=== PATIENT | male | born 1980 | race Caucasian/White ===

== ENCOUNTER → 2017-06-28 14:50 | Outpatient (CLI) | payer OTHER, MEDICARE, MEDICAID, SELFPAY ==
--- NOTE | 2017-06-28 | DI.RAD.S_ITS ---
PROCEDURE: XR CHEST 1V INDICATIONS: PORT DYSFUCTION/CHECK POSITION OF DEVICE TECHNIQUE: One view of the chest was acquired. COMPARISON: [facility], , CHEST 1 VIEW, 04/13/2017, 9:02. [facility], CR, CHEST 2 VIEW, 01/21/2017, 10:46. FINDINGS: Surgical changes and devices: A Port-A-Cath from a left-sided approach extends into the distal SVC. Prior anterior cervical fusion plate noted at the low cervical spine Lungs and pleura: No pleural effusions or pneumothorax. Lungs are clear. Mediastinum: Mediastinal contours appear normal. Heart size is normal. Bones and chest wall: No suspicious bony lesions. Overlying soft tissues appear unremarkable. IMPRESSION: Normal Port-A-Cath appearance likely in film. Dictated by: Evens Ramírez M.D. on 06/28/2017 at 15:08 Approved by: Evens Ramírez M.D. on 06/28/2017 at 15:13
== END ==
PROVIDERS: Family Provider Family Medicine; PCP Family Medicine; Visit Provider Surgery
DX: Z45.2 Encounter for adjustment and management of vascular access device (principal)
CPT/HCPCS: 71045; 99212

== ENCOUNTER → 2017-07-02 16:43 | Outpatient (CLI) | payer OTHER, MEDICARE, MEDICAID, SELFPAY ==
--- NOTE | 2017-07-08 10:58 | PM.PFT.1 ---
Pulmonary Function Test Referral & Results Date Patient Seen: 07/02/17 Requesting provider: Karen Henry Indication: Amyotrophic lateral sclerosis Results: The spirometry demonstrates an FVC of 4.09 L which is 67% of predicted. The FEV1 was measured at 3.89 L which is 80% of predicted. The FEV1/FVC ratio was 95 which is 117% of predicted. Following the administration of bronchodilator there was no appreciable change. Lung volumes show an SVC of 4.34 L which is 75% of predicted. No diffusing capacity was performed The maximum voluntary ventilation was reduced. Interpretation: This study demonstrates mild obstructive lung disease without evidence of benefit following bronchodilator There is more significant restrictive lung disease present. This is entirely consistent with known neuromuscular disease.
== END ==
PROVIDERS: Family Provider Family Medicine; PCP Family Medicine; Visit Provider Internal Medicine Critical Care Medicine
DX: G12.21 Amyotrophic lateral sclerosis (principal)
CPT/HCPCS: 94010; 94060

== ENCOUNTER → 2017-07-22 13:28 | Outpatient (CLI) | payer OTHER, SELFPAY ==
[2017-07-22 14:09] LABS: Fractionated Inspired Oxygen 0.21; HCO3 ABG 27 mmol/L (23-27); Oxygen Saturation ABG 97 % (95-100); PCO2 ABG 39.9 mmHg (35-45); PO2 ABG 89 mmHg (80-105); TCO2 ABG 28 mmol/L (23-27)
[2017-07-22 14:44] LABS: pH ABG 7.43 (7.35-7.45)
== END ==
PROVIDERS: Family Provider Family Medicine; PCP Family Medicine; Visit Provider Internal Medicine Critical Care Medicine
DX: G70.9 Myoneural disorder, unspecified (principal); J99 Respiratory disorders in diseases classified elsewhere
CPT/HCPCS: 36600; 82805

== ENCOUNTER → 2017-08-02 15:57 | Outpatient (CLI) | payer OTHER, SELFPAY ==
[2017-08-02 18:02] LABS: Folate 19.4 ng/mL (2.76-20.0); Vitamin B12 982 pg/mL (239-931)
[2017-08-05 15:26] LABS: Homocysteine 5.1 umol/L (< 11.4)
[2017-08-06 22:12] LABS: Methylmalonic Acid 115 nmol/L (87-318)
== END ==
PROVIDERS: Family Provider Family Medicine; PCP Family Medicine; Visit Provider Family Medicine
DX: D75.89 Other specified diseases of blood and blood-forming organs (principal)
CPT/HCPCS: 36415; 82607; 82746; 83090; 83921

== ENCOUNTER 2017-08-04 17:28 | Emergency (ER) | payer OTHER, MEDICARE, MEDICAID, SELFPAY ==
[2017-08-04 17:32] VITALS: BP 142/100; PULSE 78; RESP 16; TEMP 36.2; O2SAT 100
--- NOTE | 2017-08-04 18:40 | ED.HA ---
HPI - Headache <Clay Tidwell DO - Last Filed: 08/05/17 07:01> General Chief Complaint: Headache Stated Complaint: HEADACHE Time Seen by Provider: 08/04/17 17:59 Source: patient Mode of arrival: wheelchair Limitations: no limitations History of Present Illness HPI Narrative: 37-year-old male with a history of ALS and also history of headaches not on daily medication in a wheelchair here for evaluation of headache. States that it started earlier today. Gradual onset. States that in character feels like prior headaches however just worse than normal. States that he took a Percocet at home prior to arrival without any improvement. Does have photophobia. No fevers. No neck pain. No change in his neurologic status. Related Data Home Medications Medication Instructions Recorded Confirmed riluzole 50 mg PO Q12H #0 11/17/16 06/15/17 [radicva] #0 03/17/17 06/15/17 baclofen 20 mg PO TID #0 03/18/17 06/15/17 vitamin B complex [B 1 tab PO QDAY #0 04/05/17 06/15/17 Complex-Vitamin B12] Previous Rx's Medication Instructions Recorded fluticasone 1 spray INTRANASAL BID #1 spr 07/23/16 oxycodone 5 mg PO Q6HP PRN #10 tab 04/13/17 lamotrigine ER 250 mg 250 mg PO QDAY #30 tab 07/15/17 tablet,extended release 24 hr lisdexamfetamine 20 mg capsule 20 mg PO QAM #30 cap 07/15/17 lisdexamfetamine 40 mg capsule 40 mg PO QAM #30 cap 07/15/17 prazosin 1 mg capsule 1 mg PO DAILY #90 cap 07/15/17 ramelteon 8 mg tablet 8 mg PO HS #90 tab 07/15/17 ramipril 5 mg capsule 5 mg PO DAILY #90 cap 07/15/17 methylphenidate ER 36 mg 36 mg PO QAM #30 tab 07/29/17 tablet,extended release 24 hr oxycodone-acetaminophen 5 mg-325 1 tab PO BIDP PRN #60 tab 07/30/17 mg tablet Allergies Allergy/AdvReac Type Severity Reaction Status Date / Time No Known Drug Allergies Allergy Verified 07/15/17 17:22 Review of Systems <DO Melvin Luque Last Filed: 08/05/17 07:01> Constitutional Denies chills, Denies fever(s), Reports headache(s), Denies lethargy and Denies weakness Eyes Denies diplopia and Reports photophobia ENT Ears, Nose, Mouth, and Throat: Reports headache(s), Denies sinus pain, Denies sinus pressure and Denies sore throat Cardiovascular Denies chest pain and Denies dyspnea Respiratory Denies cough and Denies dyspnea Gastrointestinal Gastrointestinal: Denies constipation, Denies diarrhea, Denies nausea and Denies vomiting Genitourinary Denies dysuria Neurologic Reports headache(s) and Denies weakness Comments: No change in neurologic status other than headache Hematologic/Lymphatic Denies easy bruising Exam <Clay Tidwell DO - Last Filed: 08/05/17 07:01> Initial Vital Signs Initial Vital Signs: Vital Signs Temperature 97.1 F L 08/04/17 17:32 Pulse Rate 78 08/04/17 17:32 Respiratory Rate 16 08/04/17 17:32 Blood Pressure 142/100 H 08/04/17 17:32 Pulse Oximetry 100 08/04/17 17:32 Const General: cooperative and well developed [facility] Head: normal to inspection, normocephalic and atraumatic Eyes Pupils: PERRL Resp Effort & Inspection: normal respiratory effort and no retractions Auscultation: clear to auscultation bilaterally Cardio Rate: regular rate Rhythm: regular rhythm Neuro General: alert, awake and oriented x3 Cognition: normal cognition Speech: speech normal Other: Patient able to move all 4 extremities or somewhat limited secondary to his ALS <Caitie Izaguirre DO - Last Filed: 08/04/17 23:30> Initial Vital Signs Initial Vital Signs: Vital Signs Temperature 97.1 F L 08/04/17 17:32 Pulse Rate 78 08/04/17 17:32 Respiratory Rate 16 08/04/17 17:32 Blood Pressure 142/100 H 08/04/17 17:32 Pulse Oximetry 100 08/04/17 17:32 Course <Clay Tidwell DO - Last Filed: 08/05/17 07:01> Orders Ordered: Discontinued Medications Diphenhydramine HCl (Benadryl) 25 mg IV NOW ONE Stop: 08/04/17 18:42 Last Admin: 08/04/17 19:11 Dose: 25 mg Haloperidol (Haldol) 2.5 mg IV NOW ONE Stop: 08/04/17 19:34 Last Admin: 08/04/17 19:40 Dose: 2.5 mg Hydromorphone HCl (Dilaudid) 1 mg IV NOW ONE Stop: 08/04/17 20:41 Last Admin: 08/04/17 20:51 Dose: Hydromorphone HCl (Dilaudid) 1 mg IV NOW ONE Stop: 08/04/17 21:01 Last Admin: 08/04/17 20:55 Dose: 0.5 mg Sodium Chloride (Normal Saline 0.9%) 1,000 mls @ 1,000 mls/hr IV BOLUS ONE Stop: 08/04/17 20:11 Last Infusion: 08/04/17 20:04 Dose: 0 mls/hr Admin: 08/04/17 19:13 Dose: 1,000 mls/hr Ketorolac Tromethamine (Toradol) 30 mg IV NOW ONE Stop: 08/04/17 18:42 Last Admin: 08/04/17 19:11 Dose: 30 mg Metoclopramide HCl (Reglan) 10 mg IV NOW ONE Stop: 08/04/17 18:42 Last Admin: 08/04/17 19:11 Dose: 10 mg Vital Signs - 8 hr 08/04/17 17:32 08/04/17 20:05 Temperature 97.1 F L Pulse Rate 78 67 Respiratory Rate 16 14 Blood Pressure 142/100 H Blood Pressure [Right Arm] 134/91 H Pulse Oximetry 100 97 <Caitie Izaguirre DO - Last Filed: 08/04/17 23:30> Orders Ordered: Discontinued Medications Diphenhydramine HCl (Benadryl) 25 mg IV NOW ONE Stop: 08/04/17 18:42 Last Admin: 08/04/17 19:11 Dose: 25 mg Haloperidol (Haldol) 2.5 mg IV NOW ONE Stop: 08/04/17 19:34 Last Admin: 08/04/17 19:40 Dose: 2.5 mg Hydromorphone HCl (Dilaudid) 1 mg IV NOW ONE Stop: 08/04/17 20:41 Last Admin: 08/04/17 20:51 Dose: Hydromorphone HCl (Dilaudid) 1 mg IV NOW ONE Stop: 08/04/17 21:01 Last Admin: 08/04/17 20:55 Dose: 0.5 mg Sodium Chloride (Normal Saline 0.9%) 1,000 mls @ 1,000 mls/hr IV BOLUS ONE Stop: 08/04/17 20:11 Last Infusion: 08/04/17 20:04 Dose: 0 mls/hr Admin: 08/04/17 19:13 Dose: 1,000 mls/hr Ketorolac Tromethamine (Toradol) 30 mg IV NOW ONE Stop: 08/04/17 18:42 Last Admin: 08/04/17 19:11 Dose: 30 mg Metoclopramide HCl (Reglan) 10 mg IV NOW ONE Stop: 08/04/17 18:42 Last Admin: 08/04/17 19:11 Dose: 10 mg Vital Signs - 8 hr 08/04/17 17:32 08/04/17 20:05 Temperature 97.1 F L Pulse Rate 78 67 Respiratory Rate 16 14 Blood Pressure 142/100 H Blood Pressure [Right Arm] 134/91 H Pulse Oximetry 100 97 [facility] - Headache <Clay Tidwell, DO - Last Filed: 08/05/17 07:01> [facility] Narrative Medical decision making narrative: Patient without fevers. No neck pain. No physical exam findings concerning for meningitis. Does have gradual onset right-sided throbbing headache that he says in character feels like his prior headaches just worse. Patient was given IV medications in the emergency department without any improvement. He was then given Haldol IV. Upon re-evaluation patient improves it is symptoms have improved somewhat. He was sleeping. Will hold on head CT for now. Will hold on a lumbar puncture for now. Care turned over to night provider for further evaluation. Discharge Plan Departure Patient Disposition: Home, Self-Care Clinical Impression: Headache Discharge Date/Time: 08/04/17 21:35 Interventions: ED Discharge Assessment Last Done: 08/04/17 21:30 Instructions: DI for Headache Activity Restrictions/Additional Instructions: *You have been diagnosed with headache *What to do: If headache continues or worsens return to ED and may require further imaging and testing. *Continue to take medications as directed *Follow up with your primary care provider in 2-3 days *Return to ER if you should have any new, worsening or concerning symptoms Prescriptions: No Action lisdexamfetamine 20 mg capsule 20 mg PO QAM Qty: 30 RF: 0 lisdexamfetamine 40 mg capsule 40 mg PO QAM Qty: 30 RF: 0 lamotrigine [Lamictal XR] 250 mg tablet extended release 24hr 250 mg PO QDAY Qty: 30 RF: 2 prazosin 1 mg capsule 1 mg PO DAILY Qty: 90 RF: 0 ramelteon [Rozerem] 8 mg tablet 8 mg PO HS Qty: 90 RF: 0 fluticasone 16 GM spray,suspension 1 spray Intranasal BID Qty: 1 RF: 11 riluzole 50 MG tablet 50 mg PO Q12H Qty: 0 RF: 0 [radicva] Qty: 0 RF: 0 baclofen 20 MG tablet 20 mg PO TID Qty: 0 RF: 0 vitamin B complex [B Complex-Vitamin B12] 1 EACH tablet 1 tab PO QDAY Qty: 0 RF: 0 oxycodone 5 MG tablet 5 mg PO Q6HP PRNQty: 10 RF: 0 ramipril 5 mg capsule 5 mg PO DAILY Qty: 90 RF: 1 methylphenidate HCl [Concerta] 36 mg tablet extended release 24hr 36 mg PO QAM Qty: 30 RF: 0 oxycodone-acetaminophen 5-325 mg tablet 1 tab PO BIDP PRN (Reason: pain) Qty: 60 RF: 0 Referrals: Frank Son MD [Primary Care Provider] - <Caitie Izaguirre DO - Last Filed: 08/04/17 23:30> Sign Out Provider Sign Out Attestation: Patient signed out to me by Dr. Tidwell. I have seen evaluated myself. This is the same headache that he always feels. His headache has improved some. However not much improvement after Haldol and migraine regimen. Will try Dilaudid. Dilaudid has improved his headache. He feels better and able to go home. Discussed with him that if his headache should return or be different in any nature that he may require imaging. At this time he would would decline and would prefer to be home. He appears nontoxic and much better than when I 1st evaluated him.
[2017-08-04] MEDS: diphenhydrAMINE 50 MG/ML VIAL 25 MG IV (19:11)
[2017-08-04] MEDS: METOCLOPRAMIDE 10 MG/2 ML INJ IV (19:11)
[2017-08-04] MEDS: KETOROLAC 60 MG/2 ML VIAL 30 MG IV (19:11)
[2017-08-04] MEDS: SODIUM CHLORIDE 0.9% 1,000 ML 1000 ML IV (19:13)
[2017-08-04] MEDS: HALOPERIDOL 5 MG/ML VIAL 2.5 MG IV (19:40)
[2017-08-04 20:05] VITALS: BP 134/91; PULSE 67; RESP 14; O2SAT 97
[2017-08-04] MEDS: HYDROMORPHONE 1 MG INJ IV (20:55)
== END 2017-08-04 21:35 | disposition home or self-care (01) ==
PROVIDERS: Emergency Provider Emergency Medicine; Family Provider Family Medicine; PCP Family Medicine
DX: R51 Headache (principal)
CPT/HCPCS: 96361; 96374; 96375; 99283; J1170; J1200; J1630; J1885; J2765

== ENCOUNTER 2017-09-21 06:50 | Day surgery (SDC) | payer OTHER, MEDICARE, MEDICAID, SELFPAY ==
[2017-09-13 16:49] VITALS: BMI 18.8
[2017-09-21] VITALS (7 sets, daily range): BP systolic 92–127; BP diastolic 59–82; PULSE 88–103; RESP 10–16; TEMP 36.1–36.8; O2SAT 94–98; BMI 18.8
[2017-09-21] MEDS: LACTATED RINGERS 1,000 ML 100 ML IV (07:20)
[2017-09-21] MEDS: LACTATED RINGERS 1,000 ML 42 ML IV (07:20)
--- NOTE | 2017-09-21 07:29 | PM.HP.1 ---
History of Present Illness Date Patient Seen: 09/21/17 Time Patient Seen: 07:30 Chief complaint: [id number] Narrative: 37-year-old male with rapidly advancing ALS status post port placement for infusion therapy approximately for 5 months ago who has had difficulties with port function since its insertion. There has been difficulty with access although the port itself seems to be in good position both on clinical examination as well as radiographic studies. Nevertheless, the patient is now resorting to peripheral IV access for his occasional infusions. He is no longer requiring the port. He desires its removal. Denies any significant pain at this site other than when it is manipulated. He now has a gastrostomy tube due to advancing dysphagia which he is tolerating well. Denies any fever or chills. No drainage from the site. Patient History Medical History Allergic rhinitis (Acute) Bipolar disorder (Acute) Cervical vertebral fusion (Acute) Constipation (Acute) Fatigue (Acute) History of ETOH abuse (Acute) History of frequent headaches (Acute) Impaired vision (Acute) Malnourished (Acute) Nocturia (Acute) Osteoporosis (Acute) PTSD (post-traumatic stress disorder) (Acute) Port-A-Cath in place (Acute) Restrictive lung disease (Acute) Seasonal allergies (Acute) Urinary urgency (Acute) Vitamin D deficiency (Acute) Surgical History Gastrostomy in place (Acute) H/O cervical discectomy (Acute) History of tonsillectomy (Acute) Family & Social History Family History: Reviewed 09/21/17 by Varinder Chester MD Social History: household members spouse Tobacco & Substance use: Smoking Status Never smoker alcohol intake current Substance Use Type marijuana Meds Home Medications Medication Instructions Recorded Confirmed Type riluzole 50 mg PO Q12H #0 11/17/16 09/21/17 History [radicva] #0 03/17/17 06/15/17 History baclofen 20 mg PO TID #0 03/18/17 09/21/17 History prazosin 1 mg capsule 1 mg PO DAILY #90 cap 07/15/17 09/21/17 Rx ramelteon 8 mg tablet 8 mg PO HS #90 tab 07/15/17 09/21/17 Rx ramipril 5 mg capsule 5 mg PO DAILY #90 cap 07/15/17 09/21/17 Rx oxycodone-acetaminophen 5 mg-325 1 tab PO BIDP PRN #60 tab 07/30/17 09/21/17 Rx mg tablet mometasone 50 mcg/actuation nasal 2 spray NASAL DAILY #17 gram 08/08/17 09/21/17 Rx spray lamotrigine ER 250 mg 250 mg PO QDAY #90 tab 09/09/17 09/21/17 Rx tablet,extended release 24 hr lisdexamfetamine 20 mg capsule 20 mg PO DAILY #30 cap 09/13/17 09/21/17 Rx lisdexamfetamine 70 mg capsule 70 mg PO DAILY #30 cap 09/13/17 09/21/17 Rx Allergies Allergy/AdvReac Type Severity Reaction Status Date / Time No Known Drug Allergies Allergy Verified 09/21/17 07:16 Review of Systems Review of Systems Advancing neurologic dysfunction due to ALS. Patient is wheelchair bound. All systems reviewed & are unremarkable except as noted in HPI and below Exam Vital Signs (past 8 hours): Patient resting comfortably in the gurney in no acute distress. Alert oriented x3. His is at the bedside. Sclera nonicteric Neck is supple He has significant whole-body muscle mass wasting consistent with ALS. Regular rate and rhythm Left subclavian port site is clean, dry, and intact. The device is palpable and in good position. Abdomen soft and nondistended. Gastrostomy tube is in place. Extremities show no clubbing or cyanosis Objective Labs Labs: His last chest x-ray was approximately 2 months ago under my care which showed the port to be in good position with no other acute pulmonary processes. Assessment & Plan Plan: Assessment/Plan Narrative: 37-year-old male with ALS status post port insertion in the left subclavian site which is no longer really functioning for him for infusion purposes. He therefore requests removal, especially since he has occasional discomfort at the location. I discussed the technical details a port removal in the operating room. Risks, benefits, alternatives were explained. Risks including but not limited to anesthesia, bleeding, infection, pain, scar, hematoma, seroma, poor wound healing, chronic numbness, port disruption, distal embolization of the device, and need for further major interventional procedures including possible thoracotomy were all discussed in detail. He understands that those services are not available at this institution and he would need to be transferred under those circumstances were interventional Radiology and cardiovascular surgery are available. All questions were answered to his satisfaction, and he voiced understanding. Consent was placed on the chart. We will proceed as above.
--- NOTE | 2017-09-21 07:35 | PM.PREOP ---
Pre-operative Note Interval Note Pre-op Check: Yes History & Physical Reviewed by Physician, Yes Exam Performed and Yes History & Physical exam performed today by Physician Changes: No H&P completed within 30 days and has changed as indicated here:: Patient seen and examined today. History physical examination document and placed on the chart. Patient marked for surgery in the preoperative area. We will proceed with port removal as planned today.
[2017-09-21] MEDS: CEFAZOLIN 2 GM/100 ML FROZ.PIGGY IV (07:46)
[2017-09-21] MEDS: LIDOCAINE 1% W/EPI INJ 20 ML INJ (08:15)
--- NOTE | 2017-09-21 08:17 | SUR.OPER ---
to or from [facility] yanelis torre. patient transfered to or table per roller 2 pillows under head gel pad under heels Supine on padded OR bed, head on pillow, right arm padded and tucked at side, left arm on secured on padded arm boarn below 90 degree anglelegs uncrossed, safety belt at thigh, tape over blanket over lower legs .
--- NOTE | 2017-09-21 08:43 | P.OP_ITS ---
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 He requests removal as he is no longer using the device, and he is experiencing some discomfort at the site. Removal of the port is recommended. Surgeon: Varinder Chester Click Yes if Unassisted: Yes Anesthesia Type: MAC +/- and Local (20 cc 1* idocaine with 1 :100,000 epinephrine) Operative Notes Findings: 1. Completely intact left subclavian vein port device removed in its entirety. 2. No evidence of hemorrhage or infection Closure Type: primary Specimen(s): none sent Implants & Drains: None Estimated Blood Loss (mL): 5 Blood products transfused: none Procedure in detail: After obtaining informed consent the patient was brought to the operating room placed supine on the table. All pressure points were padded appropriately. A SCOAP time-out was performed per standard protocol. Anesthesia was achieved and the left chest was prepped and draped in usual sterile fashion overlying the existing palpable port device. Local anesthesia was achieved. Existing scar was then opened with a 15. Scalpel blade. Bovie was used to achieve hemostasis. Sharp dissection with Metzenbaum scissors followed by blunt dissection using hemostats was employed to completely liberate the device from surrounding connective tissue and scar. Device was slowly removed from the central venous system carefully in order to avoid disruption of the device. Port and the catheter were removed in their entirety. Device was discarded on the back table. Hemostasis was noted. Wound was irrigated with copious amounts of sterile saline solution. Findings are as above. Skin was closed with 3 individual interrupted vertical mattress 3 0 nylon suture. Sterile dressing was applied. Patient taken recovery in stable condition. Complications: none Condition: stable Disposition: PACU Plan for aftercare: 1. Discharge home 2. Suture removal in 7 days by home visiting nurse 3. Follow up in surgery clinic as needed
== END 2017-09-21 09:26 ==
LOC: OR 06:53
PROVIDERS: Family Provider Family Medicine; PCP Family Medicine; Visit Provider Surgery
PROC: (CPT 36590; principal; 2017-09-21 07:45)
DX: G12.21 Amyotrophic lateral sclerosis (principal); Z45.2 Encounter for adjustment and management of vascular access device
CPT/HCPCS: 36590; J0690; J2250; J2704; J3010

== ENCOUNTER 2017-09-22 14:30 | Outpatient (RCR) | payer OTHER, MEDICARE, MEDICAID, SELFPAY ==
--- NOTE | 2017-06-15 07:49 | ST.OPTN ---
On June 15, 2017 our therapy services consisting of Speech, Occupational, and Physical therapy transitioned from [employer] electronic documentation system to a new [employer] electronic system. All documentation prior to June 15 can be found under [employer] saved data. From June 15 forward, all medical record documentation will be in [employer] 6.1.
--- NOTE | 2017-06-16 12:23 | ST.OPTN ---
WEB DESIGN SPECIALIST Progress Note WEB DESIGN SPECIALIST Treatment Note Start: 06/16/17 10:56 Freq: Status: Active Protocol: Document 06/16/17 10:56 LAINEY (Rec: 06/16/17 11:27 LAINEY [id number]) Speech Pathology Treatment Note Session Time Visit Start Time 14:35 Visit Stop Time 15:20 Total Visit Minutes 45 Visit Information Visit Number 2 Plan of Care Dates 05/24/17 - 08/21/17 Insurance Information Medicare & [facility] Setting Treatment Setting Outpatient Care Visit Type Note Type Progress Note General Information General Information Onset of symptoms were noted by pt in May 2016 as changes on right side including weakened hand former helper, leg shaking, muscle bulk loss in arm, hand cramps, changes in gait. Medical exam including MRI and C-spine imaging revealed spinal stenosis in C-5 to T-1, as well as atrophy and weakness consistent with lower motor neuron disease. On , pt underwent anterior cervical spine surgery including removal of C-6 and fusion of C-5 and C-7. This did not relieve all symptoms, and ALS diagnosis was made. Following ACDF surgery, pt noted changes in swallow ability, including sticking sensation at base of throat with solids and large pills. He also reported a few episodes of compulsive swallowing at night, which prevented sleep. MBSS was not performed secondary to diagnosis. Since SOC, the pt has experienced occasional coughing with liquids. He currently tolerates thin liquids with chin tuck, solids in small bites well chewed, and pills whole or split with nutritive carrier. At SOC, pt was ambulating with cane use. He is now transitioning from 4WW to manual wheelchair. He is currently awaiting delivery of electric wheelchair. Since SOC, the pt's speech become increasingly dysarthric , characterized by reduced articulation rate and precision. He complains of and demonstrates reduced lingual and labial strength, resulting in reduced coordination of articulators and increased effort needed for speech. The pt's speech is ~90% intelligible to this familiar listener at this time. Speech intelligibility is anticipated to decrease significantly over the next 3-6 months. The pt expresses great concern of not being able to communicate effectively with his . The couple are collaborating with [employer] and [employer] to obtain AAC evaluation(s) and device(s)in preparation of disease progression. Per the pt's request, this WEB DESIGN SPECIALIST is also in communication with [employer] original [employer] to assist this process . 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 Oral exam: mild lingual and labial fasciculations, weakness, and decreased coordination; ROM WFL. Symptoms result in reduced rate and precision of speech articulation. The pt is ~90% intelligible with increased time/effort at this time, which is reduced from 100% intelligible one month and more ago. Vocal loudness is WNL at this time but anticipated to decrease with disease progression. Chief Complaint(s) Speech Swallowing Additional Areas of Concern Respiratory support for speech , swallow, and cough production Rehab Expectation/Goals: Patient Goals To maintain highest level of independence and QOL over course of disease Patient Knowledge/Awareness of WEB DESIGN SPECIALIST Role Excellent in Treatment Patient/Caregiver Compliance with Home Excellent Exercise Program Comment Pt consistently follows recommendations for swallow safety & speech clarity Objective Short Term Goals The pt will follow safe swallow strategies to maintain swallow safety with least restricted diet to meet his nutrition and hydration needs. The pt will participate with Speech Pathologists to develop /program low/high-tech AAC device(s) of the pt's choice. Custodial Goals The pt will tolerate least restricted diet to meet his nutrition and hydration needs. The pt will use breathing strategies as needed to produce adequate breath support for speech and swallow safety. The pt will demonstrate understanding of low/high-tech AAC device(s) by completing structured tasks with 90% accuracy. Treatment Activities Consulted with pt RE swallow tolerance and safety strategies. Assessed dysarthria including oral examination and speech sample analysis. Collaborated w/ pt RE choice of AAC devices, results of collaboration with [employer] Internal [employer]igator ( Aminta Cordero) and [employer] representatives, and features of [employer]ii eye-gaze device, which the pt states is his preference. Collected case history/personal information necessary to complete funding application for product. Assessment Patient Response to Treatment Good Rehab Potential Excellent Impairments Identified ADLs ALS Dysarthria Speech Intelligibility Additional Impairments Identified Rehab Potential based on pt's responsiveness in light of diagnosis Progress Towards Goals Excellent Progress Assessment of Improvement The pt demonstrates excellent compliance with recommendations for swallow safety and preparation for declining speech intelligibility. He remains highly proactive and motivated to maintain highest level of function possible in presence of a progressive disease. Reviewed with Patient Goals Progress Being Made Home Exercise Program Patient/Caregiver Understanding Excellent Plan Amount of Therapy Recommended 12+ Months Length of Session 45 Minutes Comment Intermittent visits as needed Treatment Emphasis Next Session Cont assessment/tx of swallow safety, speech intelligibility , AAC training Therapeutic Contents AAC Client Education Intelligibility Swallowing/Feeding Additional Areas of Treatment Breath support for speech and swallow Provided Patient/Caregiver Instruction Plan of Care Questions/Concerns Other Comment Precautions Therapy Recommendations Continue with Current Program Comment Cont collaboration with AAC sources Add ICD-10 Treatment Code R47.1 to POC, as per details above. Provider Signature Date
== END 2018-04-06 12:59 ==
LOC: SP 14:30
PROVIDERS: Family Provider Family Medicine; PCP Family Medicine; Visit Provider Psychiatry & Neurology Neurology
DX: G12.21 Amyotrophic lateral sclerosis (principal); R29.898 Other symptoms and signs involving the musculoskeletal system; R13.10 Dysphagia, unspecified
CPT/HCPCS: 92507; 92522; 92526

== ENCOUNTER → 2017-10-29 11:08 | Outpatient (CLI) | payer OTHER, MEDICARE, MEDICAID, SELFPAY ==
--- NOTE | 2017-11-16 10:17 | PM.PFT.1 ---
Pulmonary Function Test Referral & Results Date Patient Seen: 10/29/17 Requesting provider: Karen Henry Indication: ALS Results: The spirometry demonstrates an FVC of 4.08 L which is 67% of predicted. The FEV1 was measured at 3.85 L which is 79% of predicted. The FEV1/FVC ratio was 90 for which is 116 of predicted. No bronchodilator was administered No lung volumes were performed No diffusing capacity was performed Interpretation: Patient with slightly reduced forced vital capacity as above. Per respiratory therapist patient unable to perform complete PFTs due to physical limitations.
== END ==
PROVIDERS: Family Provider Family Medicine; PCP Family Medicine; Visit Provider Internal Medicine Critical Care Medicine
DX: G12.21 Amyotrophic lateral sclerosis (principal)
CPT/HCPCS: 94010

== ENCOUNTER → 2018-03-23 12:29 | Outpatient (CLI) | payer OTHER, MEDICARE, MEDICAID, SELFPAY ==
[2018-03-23 14:05] LABS: Alanine Aminotransferase 43 IU/L (21-72); Aspartate Aminotransferase 35 IU/L (17-59); BUN Creatinine Ratio 28.3 (6-22); Blood Urea Nitrogen 17 mg/dL (9-20); Calcium 9.6 mg/dL (8.4-10.2); Carbon Dioxide 32 mmol/L (22-32); Chloride 97 mmol/L (98-107); Cholesterol 146 mg/dL (140-199); Estimated Glomerular Filt Rate > 60.0 mL/min (>60); Glucose 84 mg/dL (70-100); HDL Cholesterol 52 mg/dL (40-60); HEMOLYSIS < 15 (0-50); LDL Cholesterol Calculated 75 mg/dL (<100); Potassium 4.6 mmol/L (3.4-5.1); Sodium 139 mmol/L (137-145); Triglycerides 96 mg/dL (35-150)
== END ==
PROVIDERS: Family Provider Family Medicine; PCP Family Medicine; Visit Provider Psychiatry & Neurology Neurology
DX: G12.21 Amyotrophic lateral sclerosis (principal)
CPT/HCPCS: 36415; 80048; 80061; 84450; 84460

== ENCOUNTER 2018-09-04 04:32 | Emergency (ER) | payer OTHER, MEDICARE, MEDICAID, SELFPAY ==
[2018-09-04 04:33] VITALS: BP 136/96; PULSE 81; RESP 20; TEMP 36.2; O2SAT 96; BMI 19.9
--- NOTE | 2018-09-04 04:46 | DI.RAD.S_ITS ---
PROCEDURE: XR CHEST 1V INDICATIONS: short of breath TECHNIQUE: One view of the chest was acquired. COMPARISON: None. FINDINGS: Surgical changes and devices: None. Lungs and pleura: Lungs are clear. No pleural effusions or pneumothorax. Mediastinum: Mediastinal contours appear normal. Heart size is normal. Bones and chest wall: No suspicious bony lesions. Overlying soft tissues appear unremarkable. IMPRESSION: No acute cardiopulmonary findings. Dictated by: Belkis Putnam M.D. on 09/04/2018 at 7:02 Approved by: Belkis Putnam M.D. on 09/04/2018 at 7:03
--- NOTE | 2018-09-04 04:52 | ED.SOB ---
HPI - SOB/Dyspnea General Chief Complaint: Upper Respiratory Symptoms Stated Complaint: feels cant take deep breath, fluid in lungs Time Seen by Provider: 09/04/18 04:33 Source: patient and family Mode of arrival: wheelchair Limitations: physical limitation History of Present Illness Patient is a 38-year-old male with history progress of ALS presenting with difficulty breathing. He has thickened secretions and often requires frequent suctioning. However this evening he woke up feeling like he was grounding. You can hear some obvious gurgling in his throat. He did not have any fever and went to bed normal per his . He is actually scheduled for a trach tomorrow was seen by Dr. Juarez last week, unfortunately they could not get the respiratory team together and the trach has been postponed. Patient denies any pain this. He uses a computer to communicate and has mostly lost his voice and is nonverbal. History is taken from his . Related Data Home Medications Medication Instructions Recorded Confirmed riluzole 50 mg PO Q12H #0 11/17/16 09/21/17 [radicva] #0 03/17/17 06/15/17 baclofen 20 mg PO TID #0 03/18/17 09/21/17 Previous Rx's Medication Instructions Recorded oxycodone-acetaminophen 5 mg-325 1 tab PO BIDP PRN #60 tab 07/30/17 mg tablet mometasone 50 mcg/actuation nasal 2 spray NASAL DAILY #17 gram 08/08/17 spray hydromorphone 2 mg tablet 2 mg PO DAILY PRN #5 tab 10/28/17 ramipril 5 mg capsule 5 mg PO DAILY #90 cap 10/29/17 nystatin 100,000 unit/mL oral 100,000 unit PO DAILY #60 ml 02/02/18 suspension lisdexamfetamine 40 mg capsule 40 mg PO DAILY #3 cap 04/26/18 lisdexamfetamine 60 mg capsule 60 mg PO DAILY #3 cap 04/26/18 vilazodone 40 mg tablet 40 mg PO DAILY #90 tab 05/12/18 diazepam 5 mg tablet 5 mg PO TID PRN #90 tab 07/29/18 lamotrigine 200 mg tablet 200 mg PO DAILY #90 tab 08/10/18 lisdexamfetamine 40 mg capsule 40 mg PO QAM #90 cap MDD 100 MG 08/10/18 lisdexamfetamine 60 mg capsule 60 mg PO QAM #90 cap 08/10/18 ramelteon 8 mg tablet 8 mg PO HS #90 tab 08/10/18 Allergies Allergy/AdvReac Type Severity Reaction Status Date / Time No Known Drug Allergies Allergy Verified 07/21/18 13:00 Review of Systems Review of Systems ROS Unobtainable: Unobtainable due to medical condition Respiratory Reports as per HPI [facility] Medical History Upper extremity weakness (Chronic) Neck muscle spasm (Chronic) Attention deficit disorder of adult with hyperactivity (01/21/15) Tension headache (01/21/15) Essential hypertension (09/19/15) 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) Atrophy of muscle of right hand (11/17/16) Compression fracture of cervical spine, sequela (11/17/16) Osteopenia (11/27/16) Recurrent falls (12/24/16) Frequent headaches (12/24/16) Uncomplicated opioid dependence (Chronic) Allergic rhinitis (Acute) Bipolar disorder (Acute) Cervical vertebral fusion (Acute) Constipation (Acute) Fatigue (Acute) History of ETOH abuse (Acute) History of frequent headaches (Acute) Impaired vision (Acute) Malnourished (Acute) Nocturia (Acute) Osteoporosis (Acute) PTSD (post-traumatic stress disorder) (Acute) Port-A-Cath in place (Acute) Restrictive lung disease (Acute) Seasonal allergies (Acute) Urinary urgency (Acute) Vitamin D deficiency (Acute) Surgical History Gastrostomy in place (Acute) H/O cervical discectomy (Acute) History of tonsillectomy (Acute) Family History (System 07/21/18 @ 13:00 by Kelsi Garcia) Father Essential hypertension Depression Mother Depression Social History (System 07/21/18 @ 13:00 by Kelsi Garcia) Smoking Status: Never smoker Family History Father Essential hypertension Depression Mother Depression Social History Smoking Status: Never smoker Exam Initial Vital Signs Initial Vital Signs: Vital Signs Temperature 97.2 F L 09/04/18 04:33 Pulse Rate 81 09/04/18 04:33 Respiratory Rate 20 09/04/18 04:33 Blood Pressure 136/96 H 09/04/18 04:33 Pulse Oximetry 96 09/04/18 04:33 Gen.: Alert week male in wheelchair HEENT: Head is atraumatic Neck: Supple Lungs: Upper airway coarseness heard. Lungs are actually clear bilaterally Cardiac: Regular rate no murmur Abdomen: Soft of PEG tube in place Extremities: No gross bony deformities peripheral pulses intact Neurologic: Progressive ALS week, tremors Course Orders Ordered: Discontinued Medications Scopolamine (Transderm-Scop) 1 patch TOP NOW ONE Stop: 09/04/18 05:16 Last Admin: 09/04/18 05:34 Dose: 1 patch Vital Signs - 8 hr 09/04/18 04:33 Temperature 97.2 F L Pulse Rate 81 Respiratory Rate 20 Blood Pressure 136/96 H Pulse Oximetry 96 MDM - SOB/Dyspnea MDM Narrative Medical decision making narrative: I called and spoke with Dr. Aguilar on-call ENT. Unfortunately not able to speed up trach however patient's physician Dr. Juarez is on-call in a few hours. I spoke with Dr. Vitale, gave him patient name and info. Recommended getting patient in for a trach this week. He agreed. He will discuss case personally with Dr. Juarez. He is on atropine already however will also try scopolamine to help dry up his secretions. 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 I will talk with Dr. Juarez this evening to see would I can do to help you. Use this in her catheter for suction. Scopolamine patch has been placed, if you feel he is having reaction to it you may remove it. It will take some time to help see the effect, however if atropine drops are not helping this may not help either. *Continue to take medications as directed *Follow up with your primary care provider in 2-3 days *Return to ER if you should have difficulty breathing, increased secretions or any new, worsening or concerning symptoms Prescriptions: No Action hydromorphone 2 mg tablet 2 mg PO DAILY PRN (Reason: pain) Qty: 5 RF: 0 lisdexamfetamine 60 mg capsule 60 mg PO DAILY Qty: 3 RF: 0 lisdexamfetamine 40 mg capsule 40 mg PO DAILY Qty: 3 RF: 0 riluzole 50 MG tablet 50 mg PO Q12H Qty: 0 RF: 0 [radicva] Qty: 0 RF: 0 baclofen 20 MG tablet 20 mg PO TID Qty: 0 RF: 0 oxycodone-acetaminophen 5-325 mg tablet 1 tab PO BIDP PRN (Reason: pain) Qty: 60 RF: 0 mometasone 50 mcg/actuation spray,non-aerosol 2 spray NASAL DAILY Qty: 17 RF: 5 ramipril 5 mg capsule 5 mg PO DAILY Qty: 90 RF: 1 nystatin 100,000 unit/mL suspension 100,000 unit PO DAILY Qty: 60 RF: 1 vilazodone 40 mg tablet 40 mg PO DAILY Qty: 90 RF: 1 Hold Instructions: Side effects diazepam 5 mg tablet 5 mg PO TID PRN (Reason: anxiety/muscle spasm) Qty: 90 RF: 0 Rozerem 8 mg tablet 8 mg PO HS Qty: 90 RF: 0 lisdexamfetamine 40 mg capsule 40 mg PO QAM MDD 100 MG Qty: 90 RF: 0 lisdexamfetamine 60 mg capsule 60 mg PO QAM Qty: 90 RF: 0 lamotrigine 200 mg tablet 200 mg PO DAILY Qty: 90 RF: 0 Referrals: Cameron Juarez MD [Physician] - Frank Son MD [Primary Care Provider] -
--- NOTE | 2018-09-04 05:14 | PC.NURSE ---
patient answers yes to wanting to hurt himself or others. patient can only answer yes or no questions by nodding his head. patient unable to move arms or legs. patient with ALS. patients at bedside. patient on stretcher. interventions in place. maintained patient safety.
[2018-09-04 05:30] VITALS: BP 122/71; PULSE 71; RESP 20; O2SAT 100
[2018-09-04] MEDS: SCOPOLAMINE 1 PATCH TOP (05:34)
== END 2018-09-04 05:55 | disposition home or self-care (01) ==
PROVIDERS: Emergency Provider Emergency Medicine; Family Provider Family Medicine; PCP Family Medicine
DX: G12.22 Progressive bulbar palsy (principal); Z93.1 Gastrostomy status
CPT/HCPCS: 71045; 99282; 99283

== ENCOUNTER → 2019-04-26 13:38 | Outpatient (CLI) | payer OTHER, MEDICARE, MEDICAID, SELFPAY ==
[2019-04-26 15:06] LABS: Alanine Aminotransferase 27 IU/L (<50); Aspartate Aminotransferase 26 IU/L (17-59)
== END ==
PROVIDERS: Family Provider Family Medicine; PCP Family Medicine; Referring Provider Psychiatry & Neurology Neurology; Visit Provider Psychiatry & Neurology Neurology
DX: G12.21 Amyotrophic lateral sclerosis (principal)
CPT/HCPCS: 36415; 84450; 84460

== ENCOUNTER → 2020-02-28 16:18 | Outpatient (CLI) | payer OTHER, MEDICARE, MEDICAID, SELFPAY ==
[2020-02-28 18:18] LABS: Alanine Aminotransferase 21 IU/L (<50); Albumin 3.5 g/dL (3.5-5.0); Albumin Globulin Ratio 1.2 (1.0-2.8); Alkaline Phosphatase 97 U/L (38-126); Aspartate Aminotransferase 25 IU/L (17-59); Bilirubin Total 0.7 mg/dL (0.2-1.3); Blood Urea Nitrogen 14 mg/dL (9-20); Calcium 8.9 mg/dL (8.4-10.2); Carbon Dioxide 23 mmol/L (22-32); Chloride 106 mmol/L (98-107); Estimated Glomerular Filt Rate > 60.0 mL/min (>60); Globulin 2.9 g/dL (1.7-4.1); Glucose 92 mg/dL (70-100); HEMOLYSIS < 15 (0-50); Potassium 4.5 mmol/L (3.4-5.1); Sodium 133 mmol/L (137-145); Total Protein 6.4 g/dL (6.3-8.2)
== END ==
PROVIDERS: Family Provider Family Medicine; PCP Family Medicine; Referring Provider Family Medicine; Visit Provider Family Medicine
DX: G12.21 Amyotrophic lateral sclerosis (principal); Z79.899 Other long term (current) drug therapy
CPT/HCPCS: 36415; 80053

== ENCOUNTER → 2020-05-28 12:53 | Outpatient (CLI) | payer MEDICARE, MEDICAID, SELFPAY ==
[2020-05-28 14:29] LABS: Alanine Aminotransferase 22 IU/L (<50); Aspartate Aminotransferase 28 IU/L (17-59)
== END ==
PROVIDERS: Family Provider Family Medicine; PCP Family Medicine; Referring Provider Psychiatry & Neurology Neurology; Visit Provider Psychiatry & Neurology Neurology
DX: G12.21 Amyotrophic lateral sclerosis (principal)
CPT/HCPCS: 36415; 84450; 84460